=== PATIENT | male | born 1970 | race African-American/Black ===

== ENCOUNTER 2024-12-06 00:34 | Emergency (ER) | payer MEDICAID ==
[~2024-12-06] VITALS: Ht 172.7 cm; Wt 90.0 kg
[2024-12-06] MEDS: ACETAMINOPHEN 325MG TABLET PO ONE (01:24)
[2024-12-06] MEDS: KETOROLAC 30MG/ML VIAL IM ONE (01:24)
[2024-12-06 02:52] VITALS: O2SAT 100
[2024-12-06 02:58] VITALS: BP 166/94; PULSE 94; RESP 19; TEMP 36.9; O2SAT 100
[2024-12-06] MEDS ORDERED: HYDR-4001 MT (03:06)
== END 2024-12-06 03:39 | disposition home or self-care (01) ==
LOC: ER 00:34
DX: M25.522 Pain in left elbow (principal); E11.9 Type 2 diabetes mellitus without complications; F32.A Depression, unspecified; Z79.899 Other long term (current) drug therapy; Z98.890 Other specified postprocedural states; Z79.01 Long term (current) use of anticoagulants
CPT/HCPCS: 99285; 93971; 96372; J1885